=== PATIENT | male | born 1945 | race Caucasian/White ===

== ENCOUNTER 2020-10-30 07:37 | Emergency (ER) | payer MEDICARE, OTHER ==
[~2020-10-30] VITALS: Ht 190.5 cm; Wt 95.5 kg
[2020-10-30] MEDS ORDERED: ACETAMINOPHEN 500 MG TAB (TYLENOL) PO ONE (07:45)
[2020-10-30] MEDS ORDERED: IVER3TAB2 PO (08:10)
[2020-10-30] MEDS ORDERED: RT-ALBUINH IH (08:10)
--- NOTE | 2020-10-30 08:11 | ED Respiratory ---
General Chief Complaint: Respiratory Problems Stated Complaint: SOB Source: patient Exam Limitations: no limitations History of Present Illness Date Seen by Provider: Oct 30, 2020 Time Seen by Provider: 08:00 Initial Comments 74-year-old male sent from the outpatient clinic presents with fever and chills this morning. Diagnosed with COVID-19 10 days ago and has had upper respiratory symptoms cough and intermittent shortness of air. Treated with steroids, anti biotics and is taking appropriate vitamins. Allergies and Home Medications Allergies Coded Allergies: No Allergy Information Available (Unverified , 10/30/20) Patient Home Medication List Home Medication List Reviewed: Yes Review of Systems Review of Systems Constitutional: chills; No dizziness; fever; No malaise, No weakness Respiratory: cough, short of breath, wheezing Cardiovascular: No chest pain, No edema, No palpitations, No syncope Gastrointestinal: No abdominal pain, No loss of appetite, No nausea, No vomiting Musculoskeletal: No back pain, No joint pain Skin: No change in color, No rash Psychiatric/Neurological: Denies Numbness, Denies Paresthesia, Denies Weakness Past Pciryxx-Hywxai-Csxlnc Hx Past Med/Social Hx: Reviewed Nursing Past Med/Soc Hx Patient Social History Recent Foreign Travel: No Contact w/Someone Who Travel: No Physical Exam Capillary Refill : Height: '" Weight: lbs. oz. kg; BMI Method: General Appearance: WD/WN, no apparent distress HEENT: PERRL/EOMI, normal ENT inspection Neck: non-tender, supple Respiratory: chest non-tender, lungs clear, normal breath sounds, no respiratory distress, no accessory muscle use Cardiovascular: regular rate, rhythm, no edema, no JVD Gastrointestinal: normal bowel sounds, non tender, soft Extremities: normal range of motion, non-tender, no pedal edema Neurologic/Psychiatric: no motor/sensory deficits, alert, normal mood/affect, oriented x 3 Skin: normal color, warm/dry Progress/Results/Core Measures Suspected Sepsis SIRS Temperature: Pulse: Respiratory Rate: Blood Pressure / Mean: Results/Orders My Orders Orders - MARY SMITH DO Acetaminophen Tablet (Tylenol Tablet) (10/30/20 07:45) Medications Given in ED Current Medications Medications Dose Ordered Sig/Nayan Route Start Time Stop Time Status Last Admin Dose Admin Acetaminophen 1,000 mg ONCE ONCE PO 10/30/20 07:45 10/30/20 07:46 DC 1/6/21 07:49 1,000 MG Vital Signs/I&O Capillary Refill : Departure Impression Primary Impression: COVID-19 Disposition: 01 HOME, SELF-CARE Condition: Stable Departure-Patient Inst. Decision time for Depature: 08:07 Referrals: AMAYA MACIAS MD (PCP/Family) Primary Care Physician Patient Instructions: Coronavirus Disease 2019 (COVID-19) (DC) Add. Discharge Instructions: Call Dr Macias's office with any further questions related to your illness. Follow up to the ER if your symptoms get significantly worse All discharge instructions reviewed with patient and/or family. Voiced understanding. Scripts Ivermectin (Ivermectin) 3 Mg Tablet 12 MG PO DAILY, #8 TAB take 4 tablets po today, then repeat 4 tablets po in 3 days Prov: MARY SMITH DO 10/30/20 Albuterol Sulfate (PROAIR HFA) 1 Puff Puff 2 PUFF IH Q4H for Shortness of Breath, #1 PUFF 1 Refill 1 PUFF = 90 MCG Prov: MARY SMITH DO 10/30/20 MARY SMITH DO Oct 30, 2020 08:11
[2020-10-30] MEDS ORDERED: RT-ALBUTEROL/IPRATROPIUM 3 ML (DUONEB) VIAL INH ONE (08:15)
--- NOTE | 2020-10-30 08:20 | NUR ---
Call to patient's dgt Abi Griffin to update. Reassurance given pt has stable vitals and SaO2-97-99% on SaO2 room air. States the SaO2 only 90-91% at [facility] and pt had a fever.
--- NOTE | 2020-10-30 08:53 | NUR ---
Notified by registration that dgt called again wanting an update, stated "want all his tests results"
[2020-10-30 08:55] VITALS: BP 126/58
--- NOTE | 2020-10-30 08:55 | NUR ---
Attempt call to Abi Griffin and rolled into voicemail.
--- NOTE | 2020-10-30 08:55 | NUR ---
Reviewed dischcarge instructions with patient, no verbalized questions. Explained unable to get thru to Abi but message left.
--- NOTE | 2020-10-30 08:57 | NUR ---
Attempt call to imer Barcenas, and rolled into voicemail. Message left for her of discharge and no xray/lab testing.
--- NOTE | 2020-10-30 09:05 | NUR ---
Call rec'd at time off patient deaprting ED. Dgt wants results and no tests performed. 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 Pt in no apparent distress, intermittant non-productive cough with maintained O2 saturations. Dgt asked about discharge scripts. Discussed an inhaler and Ivermectin. She then asked about Dragan Osborne and recommended they use any cough medication they choose OTC but advised of the effects of preparations that can raise BP.
[2020-10-30] MEDS ORDERED: TADA5TAB2 PO (09:52)
[2020-10-30] MEDS ORDERED: ASPI-1238 PO (09:52)
[2020-10-30] MEDS ORDERED: LISI10TA2 PO (09:52)
[2020-10-30] MEDS ORDERED: ALLO300T2 PO (09:52)
[2020-10-30] MEDS ORDERED: Vitamin E (09:52)
[2020-10-30] MEDS ORDERED: CLOP75TA69 PO (09:52)
[2020-10-30] MEDS ORDERED: Vitamin C (09:52)
[2020-10-30] MEDS ORDERED: ATOR80TA76 PO (09:52)
[2020-10-30] MEDS ORDERED: OMEP20CA18 PO (09:52)
[2020-10-30] MEDS ORDERED: MELO7.5T46 PO (09:52)
== END 2020-10-30 08:55 | disposition home or self-care (01) ==
LOC: ER FS 07:43
DX: U07.1 COVID-19 (principal)
CPT/HCPCS: 94640

== ENCOUNTER → 2020-10-30 | Outpatient (CLI) | payer MEDICARE, OTHER ==
[~2020-10-30] MED LIST: ALLO300T2 PO; ASPI-1238 PO; ATOR80TA76 PO; CLOP75TA69 PO; IVER3TAB2 PO; LISI10TA2 PO; MELO7.5T46 PO; OMEP20CA18 PO; RT-ALBUINH IH; TADA5TAB2 PO; Vitamin C; Vitamin E
[2020-10-30 11:38] LABS: BILIRUBIN,TOTAL 0.3 MG/DL (0.1-1.0); CALCIUM 8.5 MG/DL (8.5-10.1); CREATININE SERUM 1.58 MG/DL (0.60-1.30)
[2020-10-30 11:39] LABS: ALBUMIN 3.9 GM/DL (3.2-4.5); TOTAL PROTEIN 7.3 GM/DL (6.4-8.2)
[2020-10-30 11:40] LABS: HEMATOCRIT 42 % (40-54); HEMOGLOBIN 13.6 G/DL (13.3-17.7); MEAN CORPUSCULAR HEMOGLOBIN 33 PG (25-34); MEAN CORPUSCULAR HGB CONC 32 G/DL (32-36); MEAN CORPUSCULAR VOLUME 102 FL (80-99); WHITE BLOOD COUNT 6.3 10^3/uL (4.3-11.0)
[2020-10-30 11:41] LABS: BASOPHILS % (AUTO) 0 % (0-10); EOSINOPHILS % (AUTO) 0 % (0-10); LYMPHOCYTES % (AUTO) 17 % (12-44); MEAN PLATELET VOLUME 11.3 FL (7.4-10.4); MONOCYTES # (AUTO) 0.5 X 10^3 (0.0-1.0); MONOCYTES % (AUTO) 8 % (0-12); NEUTROPHILS # (AUTO) 4.6 X 10^3 (1.8-7.8); NEUTROPHILS % (AUTO) 74 % (42-75); PLATELET COUNT 162 10^3/uL (130-400)
== END ==
LOC: LAB FS 10:29
PROVIDERS: ATTEND Family Medicine
DX: I10 Essential (primary) hypertension (principal)
CPT/HCPCS: 36415; 80053; 85025